=== PATIENT | male | born 1995 | race Caucasian/White ===

== ENCOUNTER 2016-09-02 12:12 | Emergency (ER) | payer SELFPAY ==
[2016-09-02 12:24] VITALS: TEMP 98.7; BMI 36.1
[2016-09-02] MEDS ORDERED: BUPIVACAINE 0.25% 30 ML VIAL INF ONE (12:51)
[2016-09-02] MEDS ORDERED: HYDROmorphone 1 MG INJECTION IM ONE (12:51)
[2016-09-02] MEDS ORDERED: DIPHTHERIA AND TETANUS (ADULT) 0.5 ML SYR IM ONE (12:51)
--- NOTE | 2016-09-02 13:06 | EDPRACDOC ---
- General Information Chief Complaint: Wound Information Source: Patient Mode of Arrival:: Car Home Medications: Home Medications No Home Medications 10/23/15 Allergies/Adverse Reactions: Allergies Allergy/AdvReac Type Severity Reaction Status Date / Time No Known Allergies Allergy Verified 09/02/16 12:24 - History of Present Illness Onset: [employer] HPI: PT PRESENTS WITH LARGE LACERATION TO LEFT FOREARM THAT OCCURRED [employer] AFTER HE ACCIDENTALLY PUT HIS ARM THROUGH A GLASS WINDOW. PT PRESENTS WITH 2+ RADIAL PULSE, BRISK CAP REFILL, NEURO-VASCULAR INTACT, FULL ROM. - Location LEFT FOREARM Mechanism: Reports: Cut, Glass - Tetanus Status Last Tetanus: No - Pain Pain Severity: Moderate Bleeding: Reports: Controlled Associated Signs & Symptoms: Reports: None ED Past Medical History - History Reviewed Yes Nurses notes reviewed and agree except as marked - Patient Medical History Surgical History: Reports: Tonsillectomy/Adnoidectomy - Social Medical History Smoking Status: Heavy tobacco smoker (5 or more cigarettes/day or daily pipe/ cigar) EDM Review of Systems - Review of Systems ROS Negative Except as Marked: Yes All systems reviewed and were negative except as marked - Physical Exam Constitutional: Alert Oriented to: Time, Person, Place Last recorded Vital Signs: Last Vital Signs Temp 98.7 F 09/02/16 12:22 Pulse 87 09/02/16 12:22 Resp 18 09/02/16 12:22 BP 158/70 09/02/16 12:22 Pulse Ox 99 09/02/16 12:22 Oxygen Pulse Oxygen Saturation 99 O2 Device Room Air Oxygen Flow Rate Fraction of Inspired Oxygen ( FIO2) - HEENT Head: Normal ( normocephalic) Eye Exam: Normal (PERRL, EOMI, Sclera white) Oropharynx: Normal (Pharynx:Moist without exudate,Gums-no swelling) Nose: No Symptoms Reported (septum midline) Neck: Normal (FROM, trachea at midline) - Respiratory/Cardiovascular Respiratory: Normal - CTA (BBS clear to auscultation without adventitious sounds ) Cardiovascular: Normal (RRR without murmur, gallop or rub) - GI Auscultation: Normal (NABS) Palpation: Normal (Soft,No rebound or guarding, non distended) Tenderness: Non tender Alvarado's Sign: Negative Rectal Exam: Deferred - Musculoskeletal Back: Normal (Non-Tender) Extremities: Normal (Normal tone, Pulses 2+ No cyanosis or edema, FROM), Radial Pulse (2+) - Integumentary Skin: Normal, Warm, Dry Lymphatics: Normal (no adenopathy) - Neurologic Memory Impaired: Normal Motor Function: Normal (Normal tone, Pulses 2+ No cyanosis or edema, FROM) Cranial Nerve: Normal (CN II-X11 intact sensation, strength 5/5) Cerebellar: Normal Mood Description: Normal Perception: Normal ED Procedures - Suture/Laceration LEFT HAND #1 Wound Length (cm): 0.5 Wound's Depth, Shape: superficial Wound Explored: clean Irrigated w/ Saline (ccs): 20 Betadine Prep?: Yes Anesthesia: 1% Lidocaine, 0.25% Sensorcaine Volume Anesthetic (ccs): 1 Wound Margins: Flaps aligned Wound Repaired With: Sutures Suture Size/Type: 4:0, prolene Number of Sutures: 2 Layer Closure?: No Sterile Dressing Applied?: No Splint Applied?: No Sling Applied?: No LEFT HAND #2 Wound Length (cm): 0.5 Wound's Depth, Shape: superficial Wound Explored: clean Irrigated w/ Saline (ccs): 20 Betadine Prep?: Yes Anesthesia: 1% Lidocaine, 0.25% Sensorcaine Volume Anesthetic (ccs): 1 Wound Margins: Flaps aligned Wound Repaired With: Sutures Suture Size/Type: 4:0, nylon Number of Sutures: 2 Layer Closure?: No Sterile Dressing Applied?: No Splint Applied?: No Sling Applied?: No LEFT FOREARM Wound Length (cm): 10 Wound's Depth, Shape: flap Wound Explored: clean Irrigated w/ Saline (ccs): 100 Betadine Prep?: Yes Anesthesia: 1% Lidocaine, Lidocaine w/ Epi, 0.25% Sensorcaine Volume Anesthetic (ccs): 10 Wound Margins: Flaps aligned Wound Repaired With: Sutures Suture Size/Type: 3:0, nylon Number of Sutures: 12 Layer Closure?: Yes Deep Layer Suture Size/Type: 3:0 (2-0 VICRYL), dexon Number Deep Layer Sutures: 6 Sterile Dressing Applied?: No Splint Applied?: No Sling Applied?: No - Differential Diagnosis Laceration Decision Time to Discharge: 14:03 - Departure Disposition: Home Condition: Stable Final Diagnosis: Laceration - injury Instructions: Laceration (ED) Education/Counseling Given To: Patient Education/Counseling Given Regarding: Diagnosis, Treatment, Prognosis, Follow Up Referrals: Carlos Manuel Wall MD [Staff Physician] - One Week Prescriptions: No Action No Home Medications 0 NA DIR #0 info Additional Instructions: KEEP AREA CLEAN AND DRY. CHANGE THE DRESSING TWICE A DAY. CLEAN WITH DIAL SOAP AND WARM WATER. NO NEED TO APPLY NEOSPORIN AFTER TODAY. PLEASE RETURN TO THE ED IN 7-10 DAY FOR SUTURE REMOVAL. TAKE ALL THE ANTIBIOTICS PRESCRIBED. FOLLOW UP WITH PRIMARY CARE PROVIDER NEXT WEEK. RETURN TO THE ED SOONER FOR SIGNS OF INFECTION SUCH FOUL SMELLING DRAINAGE, REDNESS, EXCESSIVE SWELLING, OR EXCESSIVE PAIN. MAY TAKE TYLENOL OR MOTRIN EVERY 4 HOURS ALTERNATING FOR PAIN. MAY APPLY ICE TO THE AREA FOR PAIN RELIEF.
[2016-09-02 14:13] VITALS: BP 148/72; PULSE 80
== END 2016-09-02 14:11 | disposition home or self-care (01) ==
LOC: ED 12:12 → EDMC 14:11
DX: S51.812A Laceration without foreign body of left forearm, initial encounter (principal); W25.XXXA Contact with sharp glass, initial encounter; Y93.89 Activity, other specified; Z23 Encounter for immunization
CPT/HCPCS: 12001; 12034; 90471; 90714; 96372; 99283; J1170; J3490; S0020